=== PATIENT | male | born 1990 | race Caucasian/White ===

== ENCOUNTER 2025-05-12 12:19 | Emergency (ER) | payer MEDICAID ==
[~2025-05-12] VITALS: Ht 170.2 cm; Wt 90.0 kg
[2025-05-12 12:23] VITALS: BP 152/67; PULSE 74; RESP 18; TEMP 37.1; O2SAT 100
== END 2025-05-12 13:20 | disposition left against medical advice (07) ==
LOC: ER 12:19
DX: R53.1 Weakness (principal); Z53.21 Procedure and treatment not carried out due to patient leaving prior to being seen by health care provider